=== PATIENT | male | born 1960 | race Caucasian/White ===

== ENCOUNTER → 2016-05-29 | Outpatient (REF) | payer OTHER | LOC: M LAB REF 12:06 | PROVIDERS: ATTEND Physician Assistant Medical | DX: H92.11 Otorrhea, right ear (principal) ==

== ENCOUNTER → 2016-07-31 | Day surgery (SDC) | payer OTHER ==
[~2016-07-31] VITALS: Ht 160 cm; Wt 81.6 kg
[~2016-07-31] MED LIST: ASPI1TAB PO; ATOR1TAB19 PO; CIPRODEX OTIC SUSP 7.5ML As Ordered ONE; DIOV80TA3 PO; FISH5CAP PO; LR 1,000 ML IV ONE; LR 1,000 ML IV SCH; MIDAZOLAM INJ 2 MG/2 ML VIAL (J2250) As Ordered ONE; MOME50SP; ONDANSETRON 4MG/2ML VIAL (J2405) IV PRN; OXYMETAZOLINE NASAL SPRAY (AFRIN) As Ordered ONE; VITA100037 PO; fentaNYL 100 MCG/2 ML INJECTION (J3010) As Ordered ONE; fentaNYL 100 MCG/2 ML INJECTION (J3010) IV PRN
[2016-07-31 17:38] VITALS: BP 158/89
--- NOTE | 2016-08-07 20:09 | RO ---
DATE OF PROCEDURE: 07/31/2016 PREPROCEDURE DIAGNOSIS: Left eustachian tube dysfunction. POSTPROCEDURE DIAGNOSIS: Left eustachian tube dysfunction. PROCEDURE: Left tympanostomy using the Triune tube. SURGEON: Dr. Michael Mustafa [employer] SERVICE OPERATOR HELPER: ANESTHESIA: General. CLINICAL PREAMBLE: This 55-year-old man presented to the office with a history of chronic serous otitis media and eustachian tube dysfunction for many years. The patient was doing well while the tympanostomy tube was remaining in situ. However, he continued to have issues after the left tympanostomy tube was extruded. Physical examination revealed stenotic external auditory canal with fluid in the left middle ear. Management options including replacement of the left Triune tube to the left ear have been discussed. The patient understood and consented to the procedure. DESCRIPTION OF PROCEDURE: The patient was identified in preoperative holding and had the left ear marked. He was brought to the operating room in stable condition. In supine position on the operating table, the patient received general anesthesia followed mask ventilation. The patient's head was turned to the right side to expose the left ear. Ear speculum was inserted and cerumen was debrided. The left tympanic membrane was visualized and found to be intact and dull. Myringotomy incision was made over the anteroinferior quadrant of the tympanic membrane. Effusion was suctioned clear from the left middle ear cleft. The Triune tube was then successfully inserted into the left ear. Ciprodex drops were instilled and a cotton ball was used to occlude the ear canal. At the end of the procedure, sponge and instrument counts were correct. No complications were encountered. Estimated blood loss was nil. General anesthesia was reversed, patient awakened. The patient was brought to the recovery room in stable condition.
== END | disposition home or self-care (01) ==
LOC: M SDC 11:49
PROVIDERS: ATTEND Otolaryngology
DX: H65.22 Chronic serous otitis media, left ear (principal); I10 Essential (primary) hypertension; E78.5 Hyperlipidemia, unspecified; G47.30 Sleep apnea, unspecified; Z79.82 Long term (current) use of aspirin; Z79.899 Other long term (current) drug therapy
CPT/HCPCS: 69436; J2250; J3010

== ENCOUNTER → 2017-02-27 | Outpatient (REF) | payer OTHER | LOC: M LAB REF 12:47 | DX: H92.11 Otorrhea, right ear (principal) ==

== ENCOUNTER 2017-12-28 10:01 | Day surgery (SDC) | payer OTHER ==
[~2017-12-28 10:01] MED LIST changes: -ASPI1TAB PO; -ATOR1TAB19 PO; -CIPRODEX OTIC SUSP 7.5ML As Ordered ONE; -DIOV80TA3 PO; -FISH5CAP PO; -LR 1,000 ML IV ONE; -LR 1,000 ML IV SCH; +MIDAZOLAM INJ 2 MG/2 ML VIAL (J2250) As Ordered; -MIDAZOLAM INJ 2 MG/2 ML VIAL (J2250) As Ordered ONE; -MOME50SP; -ONDANSETRON 4MG/2ML VIAL (J2405) IV PRN; -OXYMETAZOLINE NASAL SPRAY (AFRIN) As Ordered ONE; -VITA100037 PO; +fentaNYL 100 MCG/2 ML INJECTION (J3010) As Ordered; -fentaNYL 100 MCG/2 ML INJECTION (J3010) As Ordered ONE; -fentaNYL 100 MCG/2 ML INJECTION (J3010) IV PRN
[2017-12-28] MEDS: LIDOCAINE 3.5 % 1ML OPHTH TOPICAL GEL OU (10:58)
[2017-12-28] MEDS ORDERED: THROMBIN SOLN 20,000 UNITS KIT As Ordered (13:57)
[2017-12-28] MEDS: TETRACAINE 0.5% OPHTH SOLN 4ML As Ordered (14:02)
[2017-12-28] MEDS ORDERED: KETAMINE HCL 200 MG/20 ML VIAL As Ordered (14:02)
[2017-12-28] MEDS: POVIDONE-IODINE 5% OPHTH PREP SOL 30ML As Ordered (14:02)
[2017-12-28] MEDS: TOBRADEX OPHTH OINT 3.5 GM As Ordered (14:02)
[2017-12-28] MEDS ORDERED: MIDAZOLAM INJ 2 MG/2 ML VIAL (J2250) As Ordered (14:03)
[2017-12-28] MEDS ORDERED: PROPOFOL 200 MG/20 ML VIAL As Ordered (14:13)
[2017-12-28] MEDS: LIDOCAINE 2% W/EPIN INJ 20ML **PRES FREE As Ordered (14:20)
== END 2017-12-28 15:20 | disposition home or self-care (01) ==
LOC: M SDC 10:01
DX: H02.413 Mechanical ptosis of bilateral eyelids (principal); H02.831 Dermatochalasis of right upper eyelid; H02.834 Dermatochalasis of left upper eyelid; I10 Essential (primary) hypertension; E78.5 Hyperlipidemia, unspecified; Z79.82 Long term (current) use of aspirin; G47.30 Sleep apnea, unspecified; Z79.899 Other long term (current) drug therapy
CPT/HCPCS: 67904

== ENCOUNTER → 2018-01-19 | Outpatient (REF) | payer OTHER ==
[2018-01-19 11:30] LABS: ALBUMIN 3.7 GM/DL (3.2-5.2); ALBUMIN/GLOBULIN RATIO 1.23 (1.00-1.93); ALKALINE PHOSPHATASE 80 U/L (45-117); ALT/SGPT 36 U/L (12-78); ANION GAP 7 MEQ/L (8-16); AST/SGOT 29 U/L (7-37); BLOOD UREA NITROGEN 12 MG/DL (7-18); CALCIUM LEVEL 8.8 MG/DL (8.5-10.1); CARBON DIOXIDE LEVEL 28 MEQ/L (21-32); CHLORIDE LEVEL 104 MEQ/L (98-107); CHOLESTEROL LEVEL 158 MG/DL (<200); CREATININE FOR GFR 0.99 MG/DL (0.70-1.30); GLOMERULAR FILTRATION RATE > 60.0 (>56); GLUCOSE, FASTING 97 MG/DL (70-100); HDL CHOLESTEROL 40 MG/DL (>40); LDL CHOLESTEROL 77 MG/DL (<100); NON-HDL-C 118 MG/DL; PSA SCREENING 0.5 NG/ML (< 4.0); SODIUM LEVEL 139 MEQ/L (136-145); TOTAL PROTEIN 6.7 GM/DL (6.4-8.2); TRIGLYCERIDES LEVEL 206 MG/DL (<150)
== END ==
LOC: M SFHCPLAZ 08:25
DX: E78.2 Mixed hyperlipidemia (principal); Z12.5 Encounter for screening for malignant neoplasm of prostate
CPT/HCPCS: 80053

== ENCOUNTER → 2018-11-11 | Outpatient (REF) | payer OTHER ==
[~2018-11-11] MED LIST changes: +ASPI81TA26 PO; +ATOR1TAB19 PO; +DIOV80TA3 PO; +FISH5CAP PO; +LOSA50TA88 PO; -MIDAZOLAM INJ 2 MG/2 ML VIAL (J2250) As Ordered; +MOME50SP; +VITA100067 PO; -fentaNYL 100 MCG/2 ML INJECTION (J3010) As Ordered
[2018-11-11 10:04] LABS: ALBUMIN 3.5 GM/DL (3.2-5.2); ALT/SGPT 53 U/L (12-78); BILIRUBIN,TOTAL 0.9 MG/DL (0.2-1.0); BLOOD UREA NITROGEN 10 MG/DL (7-18); CALCIUM LEVEL 8.6 MG/DL (8.5-10.1); CARBON DIOXIDE LEVEL 26 MEQ/L (21-32); CHLORIDE LEVEL 107 MEQ/L (98-107); CHOLESTEROL LEVEL 155 MG/DL (<200); CHOLESTEROL RISK RATIO 3.229 (<5); CREATININE FOR GFR 1.03 MG/DL (0.70-1.30); GLOMERULAR FILTRATION RATE > 60.0 (>56); GLUCOSE, FASTING 94 MG/DL (70-100); HDL CHOLESTEROL 48 MG/DL (>40); LDL CHOLESTEROL 76 MG/DL (<100); NON-HDL-C 107 MG/DL; POTASSIUM SERUM 3.7 MEQ/L (3.5-5.1); SODIUM LEVEL 142 MEQ/L (136-145); TOTAL PROTEIN 6.6 GM/DL (6.4-8.2); TRIGLYCERIDES LEVEL 157 MG/DL (<150)
[2018-11-11 11:51] LABS: TOTAL 25(OH) VITAMIN D 57.8 NG/ML (30.0-100.0)
== END ==
LOC: M SFHCPLAZ 08:05
PROVIDERS: ATTEND Nurse Practitioner Family
DX: Z12.5 Encounter for screening for malignant neoplasm of prostate (principal); I10 Essential (primary) hypertension; E78.2 Mixed hyperlipidemia; E55.9 Vitamin D deficiency, unspecified
CPT/HCPCS: 36415; 80053; 80061; 82306; G0103

== ENCOUNTER → 2019-11-29 | Outpatient (REF) | payer OTHER ==
[2019-11-29 14:52] LABS: ALBUMIN 3.8 GM/DL (3.2-5.2); ALT/SGPT 48 U/L (12-78); BLOOD UREA NITROGEN 14 MG/DL (7-18); CALCIUM LEVEL 9.1 MG/DL (8.5-10.1); CARBON DIOXIDE LEVEL 26 MEQ/L (21-32); CHLORIDE LEVEL 108 MEQ/L (98-107); CREATININE FOR GFR 1.14 MG/DL (0.70-1.30); GLOMERULAR FILTRATION RATE > 60.0 (>56); GLUCOSE, FASTING 102 MG/DL (70-100); SODIUM LEVEL 142 MEQ/L (136-145); TOTAL PROTEIN 7.1 GM/DL (6.4-8.2)
== END ==
LOC: M PLALAB 08:53
PROVIDERS: ATTEND Nurse Practitioner Family
DX: R94.5 Abnormal results of liver function studies (principal)

== ENCOUNTER → 2020-07-06 | Outpatient (REF) | payer OTHER ==
[2020-07-06 11:34] LABS: HEMOGLOBIN A1c 5.1 %
[2020-07-06 11:50] LABS: ALBUMIN 3.9 GM/DL (3.2-5.2); CHOLESTEROL RISK RATIO 3.382 (<5); CREATININE FOR GFR 1.8 MG/DL (0.70-1.30); GLOMERULAR FILTRATION RATE 41.3 (>56); POTASSIUM SERUM 3.7 MEQ/L (3.5-5.1); TOTAL 25(OH) VITAMIN D 69.9 NG/ML (30.0-100.0); TOTAL PROTEIN 7.2 GM/DL (6.4-8.2)
== END ==
LOC: M PLALAB 08:58
PROVIDERS: ATTEND Nurse Practitioner Family
DX: I10 Essential (primary) hypertension (principal); Z13.1 Encounter for screening for diabetes mellitus; E78.2 Mixed hyperlipidemia; Z12.5 Encounter for screening for malignant neoplasm of prostate; E55.9 Vitamin D deficiency, unspecified

== ENCOUNTER → 2020-07-12 | Outpatient (REF) | payer OTHER ==
[2020-07-12 18:21] LABS: BLOOD UREA NITROGEN 15 MG/DL (7-18); CALCIUM LEVEL 9.4 MG/DL (8.5-10.1); CARBON DIOXIDE LEVEL 30 MEQ/L (21-32); CHLORIDE LEVEL 106 MEQ/L (98-107); CREATININE FOR GFR 1.03 MG/DL (0.70-1.30); GLOMERULAR FILTRATION RATE > 60.0 (>56); GLUCOSE, FASTING 88 MG/DL (70-100); POTASSIUM SERUM 3.7 MEQ/L (3.5-5.1); SODIUM LEVEL 141 MEQ/L (136-145)
[2020-07-12 18:27] LABS: CREATININE, URINE 91.4 MG/DL; MALB URINE SIEMENS < 5.0 MG/L; MAU/CREAT RATIO 5.4 MCG/MG (0.0-30.0)
== END ==
LOC: M SFHCPLAZ 15:49
PROVIDERS: ATTEND Nurse Practitioner Family
DX: I10 Essential (primary) hypertension (principal)

== ENCOUNTER → 2020-10-12 | Outpatient (CLI) | payer OTHER ==
--- NOTE | 2020-10-12 12:15 | REP ---
INDICATION: COUGH COMPARISON: 01/31/2016. TECHNIQUE: PA/Lateral FINDINGS: Lungs: Clear, no infiltrate. Heart: There is moderate cardiomegaly. Mediastinum: Mediastinal silhouette unremarkable. Pleural angles: Unremarkable.. Bones and soft tissues: There are mild degenerative changes of the spine. IMPRESSION: No acute pulmonary disease. Moderate cardiomegaly. <Electronically signed by Trevor Fairbanks > 10/12/20 [id number]
== END ==
LOC: M PLALAB 10:32 → M PLAIMG 10:32
PROVIDERS: ATTEND Physician Assistant
DX: R05 Cough (principal)
CPT/HCPCS: 71046; U0003

== ENCOUNTER → 2020-12-04 | Outpatient (CLI) | payer OTHER ==
[2020-12-04 11:09] LABS: BLOOD UREA NITROGEN 14 MG/DL (7-18); CALCIUM LEVEL 9.1 MG/DL (8.8-10.2); CARBON DIOXIDE LEVEL 24 MEQ/L (21-32); CHLORIDE LEVEL 110 MEQ/L (98-107); CREATININE FOR GFR 1.08 MG/DL (0.70-1.30); GLOMERULAR FILTRATION RATE > 60.0 (>49); GLUCOSE, FASTING 103 MG/DL (70-100); POTASSIUM SERUM 3.7 MEQ/L (3.5-5.1); SODIUM LEVEL 142 MEQ/L (136-145)
[2020-12-04 11:20] LABS: TOTAL 25(OH) VITAMIN D 44.8 NG/ML (30.0-100.0)
== END ==
LOC: M PLALAB 08:45
PROVIDERS: ATTEND Nurse Practitioner Family
DX: I10 Essential (primary) hypertension (principal)

== ENCOUNTER → 2022-07-04 | Outpatient (CLI) | payer OTHER ==
[~2022-07-04] MED LIST changes: +LOSA50TA28 PO; -LOSA50TA88 PO; -MOME50SP; +NASO50SP3
[2022-07-04 13:34] LABS: BASO % 0.7 % (0.0-1.0); EOS # 0.2 10^3/uL (0.0-0.5); EOS % 3.1 % (0.0-3.0); HEMATOCRIT 39.2 % (42.0-52.0); HEMOGLOBIN 13.7 g/dl (13.5-17.5); LYMPH # 2.1 10^3/uL (1.5-5.0); LYMPH % 35.1 % (24.0-44.0); MEAN CORPUSCULAR HEMOGLOBIN 31.6 pg (27.0-33.0); MEAN CORPUSCULAR HGB CONC 34.9 g/dl (32.0-36.5); MEAN CORPUSCULAR VOLUME 90.3 fl (80.0-96.0); MONO # 0.6 10^3/uL (0.0-0.8); MONO % 10.4 % (2.0-8.0); NEUTROPHILS % 50.2 % (36.0-66.0); PLATELET COUNT, AUTOMATED 145 10^3/uL (150-450); RED BLOOD COUNT 4.34 10^6/uL (4.30-6.10); WHITE BLOOD COUNT 5.9 10^3/uL (4.0-10.0)
[2022-07-04 14:01] LABS: HEMOGLOBIN A1c 5.4 % (4.0-6.0)
[2022-07-04 14:02] LABS: ALBUMIN 3.7 G/DL (3.2-5.2); ALKALINE PHOSPHATASE 70 U/L (46-116); ALT/SGPT 35 U/L (7.0-40); AST/SGOT 37 U/L (<34); BILIRUBIN,TOTAL 0.6 MG/DL (0.3-1.2); BLOOD UREA NITROGEN 19 MG/DL (9-23); CALCIUM LEVEL 8.9 MG/DL (8.3-10.6); CARBON DIOXIDE LEVEL 28 MMOL/L (20-31); CHLORIDE LEVEL 104 MMOL/L (98-107); CHOLESTEROL LEVEL 134 MG/DL (<200); CHOLESTEROL RISK RATIO 3.55 (<5); CPK CREATINE PHOSPHOKINASE 127 U/L (46-171); CREATININE FOR GFR 1.13 MG/DL (0.70-1.30); GLOMERULAR FILTRATION RATE > 60.0 (>49); GLUCOSE, FASTING 131 MG/DL (74-106); HDL CHOLESTEROL 37.7 MG/DL (>40); LDL CHOLESTEROL 44.3 MG/DL (<100); NON-HDL-C 96.3 MG/DL; POTASSIUM SERUM 3.9 MMOL/L (3.5-5.1); PTH INTACT 13.1 PG/ML (18.5-88.0); SODIUM LEVEL 141 MMOL/L (136-145); TOTAL PROTEIN 6.7 G/DL (5.7-8.2); TRIGLYCERIDES LEVEL 260 MG/DL (<150)
[2022-07-04 14:04] LABS: FREE T4 1.19 NG/DL (0.89-1.76); THYROID STIMULATING HORMONE 1.877 uIU/ML (0.55-4.78); TOTAL 25(OH) VITAMIN D 43.3 NG/ML (20.0-100.0)
== END ==
LOC: M PLALAB 10:28
PROVIDERS: ATTEND Physician Assistant Medical
DX: I10 Essential (primary) hypertension (principal)

== ENCOUNTER → 2022-09-01 | Outpatient (CLI) | payer OTHER | LOC: M PAIN 13:00 | PROVIDERS: ATTEND Nurse Practitioner Family | DX: M79.10 Myalgia, unspecified site (principal); I10 Essential (primary) hypertension; E78.5 Hyperlipidemia, unspecified; G47.33 Obstructive sleep apnea (adult) (pediatric); N52.9 Male erectile dysfunction, unspecified; D64.9 Anemia, unspecified; Z86.16 Personal history of COVID-19; Z79.899 Other long term (current) drug therapy ==

== ENCOUNTER → 2022-09-23 | Outpatient (CLI) | payer OTHER ==
[~2022-09-23] MED LIST changes: +TRIAMCINOLONE ACETONIDE SUSP 40MG/ML 1ML VIAL As Ordered ONE; +diazePAM 2 MG TAB As Ordered ONE
== END ==
LOC: M PAIN 14:15
PROVIDERS: ATTEND Anesthesiology
DX: M79.12 Myalgia of auxiliary muscles, head and neck (principal); I10 Essential (primary) hypertension; E78.5 Hyperlipidemia, unspecified; G47.33 Obstructive sleep apnea (adult) (pediatric); N52.9 Male erectile dysfunction, unspecified; Z79.899 Other long term (current) drug therapy
CPT/HCPCS: 20552; J0665; J3301

== ENCOUNTER → 2022-12-10 | Outpatient (CLI) | payer OTHER ==
[~2022-12-10] MED LIST changes: -TRIAMCINOLONE ACETONIDE SUSP 40MG/ML 1ML VIAL As Ordered ONE; -diazePAM 2 MG TAB As Ordered ONE
[2022-12-10 14:53] LABS: CPK CREATINE PHOSPHOKINASE 96 U/L (46-171)
[2022-12-10 15:10] LABS: ALBUMIN 3.6 G/DL (3.2-5.2); ALKALINE PHOSPHATASE 85 U/L (46-116); ALT/SGPT 28 U/L (7.0-40); AST/SGOT 41 U/L (<34); BILIRUBIN,TOTAL 1.1 MG/DL (0.3-1.2); BLOOD UREA NITROGEN 18 MG/DL (9-23); CARBON DIOXIDE LEVEL 26 MMOL/L (20-31); CHLORIDE LEVEL 105 MMOL/L (98-107); CHOLESTEROL LEVEL 140 MG/DL (<200); CREATININE FOR GFR 1.11 MG/DL (0.70-1.30); FREE T4 1.07 NG/DL (0.89-1.76); GLOMERULAR FILTRATION RATE > 60.0 (>49); GLUCOSE, FASTING 94 MG/DL (74-106); POTASSIUM SERUM 3.5 MMOL/L (3.5-5.1); PTH INTACT 22.3 PG/ML (18.5-88.0); SODIUM LEVEL 139 MMOL/L (136-145); THYROID STIMULATING HORMONE 4.691 uIU/ML (0.55-4.78); TOTAL 25(OH) VITAMIN D 45.4 NG/ML (20.0-100.0); TOTAL PROTEIN 6.8 G/DL (5.7-8.2); TRIGLYCERIDES LEVEL 298 MG/DL (<150)
[2022-12-10 18:54] LABS: CHOLESTEROL RISK RATIO 3.07 (<5); HDL CHOLESTEROL 45.5 MG/DL (>40); LDL CHOLESTEROL 34.9 MG/DL (<100); NON-HDL-C 94.5 MG/DL
== END ==
LOC: M PLALAB 09:06
PROVIDERS: ATTEND Physician Assistant Medical
DX: E78.2 Mixed hyperlipidemia (principal)

== ENCOUNTER 2023-09-30 09:07 | Day surgery (SDC) | payer OTHER ==
[~2023-09-30] VITALS: Ht 160 cm; Wt 91.8 kg
[~2023-09-30 09:07] MED LIST changes: +FENO145T7 PO; +KP F1200 PO; +METF500T13 PO; +TOPR50TA PO; +VITA100093 PO
[2023-09-30] MEDS: NS 1,000 ML IV ONE (09:23)
[2023-09-30] MEDS ORDERED: LIDOCAINE 2% 100MG/5ML SDV (FOR ANES.) As Ordered ONE (10:41)
[2023-09-30] MEDS ORDERED: fentaNYL 100 MCG/2 ML INJECTION As Ordered ONE (10:41)
[2023-09-30] MEDS ORDERED: propofoL 200 MG/20 ML VIAL As Ordered ONE (10:41)
[2023-09-30 11:15] VITALS: TEMP 97.1
[2023-09-30 11:35] VITALS: BP 128/71; O2SAT 95
== END 2023-09-30 11:46 | disposition home or self-care (01) ==
LOC: M OPP 09:07
PROVIDERS: ATTEND Surgery
DX: D12.6 Benign neoplasm of colon, unspecified (principal); K64.8 Other hemorrhoids; K57.30 Diverticulosis of large intestine without perforation or abscess without bleeding; R19.5 Other fecal abnormalities; R13.10 Dysphagia, unspecified; R12 Heartburn; I10 Essential (primary) hypertension; G47.30 Sleep apnea, unspecified; Z99.89 Dependence on other enabling machines and devices; Z79.2 Long term (current) use of antibiotics; Z79.84 Long term (current) use of oral hypoglycemic drugs; Z79.899 Other long term (current) drug therapy
CPT/HCPCS: 43235; 45385; 88305; J3010

== ENCOUNTER → 2024-12-08 | Outpatient (CLI) | payer OTHER ==
[2024-12-08 14:35] LABS: BASO # 0.1 10^3/uL (0.0-0.2); BASO % 0.9 % (0.0-1.0); EOS # 0.3 10^3/uL (0.0-0.5); EOS % 3.8 % (0.0-3.0); LYMPH # 1.3 10^3/uL (1.5-5.0); LYMPH % 20.2 % (24.0-44.0); MONO # 0.9 10^3/uL (0.0-0.8); MONO % 13.6 % (2.0-8.0); NEUTROPHILS # 4.0 10^3/uL (1.5-8.5); NEUTROPHILS % 61.2 % (36.0-66.0); PLATELET COUNT, AUTOMATED 108 10^3/uL (150-450)
[2024-12-08 14:38] LABS: ALT/SGPT 48.0 U/L (7.0-40); AST/SGOT 67.0 U/L (<34); CALCIUM LEVEL 9.8 MG/DL (8.3-10.6); CARBON DIOXIDE LEVEL 28.0 MMOL/L (20-31); CHLORIDE LEVEL 104.0 MMOL/L (98-107); CHOLESTEROL LEVEL 140.0 MG/DL (<200); CHOLESTEROL RISK RATIO 3.66 (<5); CPK CREATINE PHOSPHOKINASE 62.0 U/L (46-171); CREATININE FOR GFR 1.25 MG/DL (0.70-1.30); GLOMERULAR FILTRATION RATE 64.3 (>49); LDL CHOLESTEROL 67.6 MG/DL (<100); NON-HDL-C 101.8 MG/DL; POTASSIUM SERUM 4.0 MMOL/L (3.5-5.1); PSA SCREENING 0.28 NG/ML (< 4.00); SODIUM LEVEL 143.0 MMOL/L (136-145); TRIGLYCERIDES LEVEL 171.0 MG/DL (<150)
[2024-12-08 14:39] LABS: FREE T4 1.37 NG/DL (0.89-1.76)
[2024-12-08 14:42] LABS: ESTIMATED AVERAGE GLUCOSE 123.0 MG/DL (60-110)
[2024-12-08 15:01] LABS: CREATININE, URINE 198.8 MG/DL
[2024-12-08 15:03] LABS: MALB URINE SIEMENS 105.0 MG/L; MAU/CREAT RATIO 52.8 MCG/MG (0.0-30.0)
== END ==
LOC: M PLALAB 08:57
PROVIDERS: ATTEND Physician Assistant Medical
DX: I10 Essential (primary) hypertension (principal); D69.6 Thrombocytopenia, unspecified; E78.2 Mixed hyperlipidemia; E11.9 Type 2 diabetes mellitus without complications; E66.9 Obesity, unspecified; Z12.5 Encounter for screening for malignant neoplasm of prostate
CPT/HCPCS: 36415; 80053; 80061; 82043; 82248; 82550; 83036; 84439; 84443; 85025; G0103